=== PATIENT | male | born 1980 | race Caucasian/White ===

== ENCOUNTER 2016-12-08 22:55 | Inpatient (IN) | payer SELFPAY ==
[2016-12-08 22:50] VITALS: O2SAT 100
[2016-12-08 22:55] VITALS: O2SAT 96
[2016-12-08 23:15] VITALS: PULSE 145
[2016-12-08 23:20] VITALS: O2SAT 92
[2016-12-08 23:25] LABS: AUTOMATED NEUTROPHIL # 5.9 TH/MM3 (1.8-7.7); BASOPHIL # 0.1 TH/MM3 (0-0.2); BASOPHIL % 0.4 % (0.0-2.0); EOSINOPHIL # 0.3 TH/MM3 (0-0.4); HEMATOCRIT 44.6 % (39.0-51.0); LYMPH % 44.8 % (9.0-44.0); LYMPHOCYTE # 5.9 TH/MM3 (1.0-4.8); MEAN CELL VOLUME 92.9 FL (80.0-100.0); MEAN CORPUSCULAR HEMOGLOBIN 30.5 PG (27.0-34.0); MEAN CORPUSCULAR HGB CONC 32.8 % (32.0-36.0); MONO % 7.6 % (0.0-8.0); NEUT % 45.2 % (16.0-70.0); PLATELET COUNT 300 TH/MM3 (150-450); RED CELL DISTRIBUTION WIDTH 13.8 % (11.6-17.2); WHITE BLOOD COUNT 13.1 TH/MM3 (4.0-11.0)
[2016-12-08 23:27] LABS: HEMO FLAGS AUTO DIFF
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
[2016-12-08 23:34] LABS: I-STAT POTASSIUM 3.5 MMOL/L (3.5-4.9)
[2016-12-08 23:36] LABS: APTT (PATIENT) 23.3 SEC (24.3-30.1); INTERNATIONAL NORMALIZED RATIO 0.9 RATIO; PROTHROMBIN TIME - PATIENT 10.3 SEC (9.8-11.6)
[2016-12-08] MEDS ORDERED: SODIUM CHLOR 0.9% 1000 ML INJ 1,000 ML IV SCH (23:39)
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
[2016-12-08 23:40] VITALS: O2SAT 96
[2016-12-08] MEDS ORDERED: ONDANSETRON HCL 4 MG/2 ML VIAL IV PRN (23:45)
[2016-12-08] MEDS ORDERED: MISCELLANEOUS NURSING INFORMATION XX SCH (23:45)
[2016-12-08] MEDS ORDERED: MANNITOL INJ 50 ML ONE (23:45)
[2016-12-08] MEDS ORDERED: CHLORHEXIDINE GLUCONATE 2 % 1 PACK (2 CLOTHS) TOP PRN (23:45)
[2016-12-08] MEDS ORDERED: ENALAPRILAT 1.25 MG/ML VIAL IV PRN (23:45)
[2016-12-08] MEDS ORDERED: SODIUM CHLORIDE 0.9% FLUSH 10 ML FLUSH IV FLUSH PRN (23:45)
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
[2016-12-08 23:55] LABS: EOSINOPHILS 2 % (0-4); NEUTROPHIL # MANUAL DIFF 5.8 TH/MM3 (1.8-7.7); PLATELET ESTIMATE SMEAR NORMAL (NORMAL); PLATELET MORPHOLOGY NORMAL (NORMAL); POLYS (SEG NEUTROPHILS) 44 % (16-70); SCAN/DIFF FINAL DIFF MANUAL; WBC DIFF SAMPLE 100
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
[2016-12-09] VITALS: PULSE 128
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
[2016-12-09] MEDS ORDERED: ceFAZolin 2 GM PREMIX 50 ML ONE (00:06)
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
--- NOTE | 2016-12-09 00:10 | PD.PROCEDR ---
Procedure Note Procedure Centerline the right subclavian A time-out was completed verifying correct patient, procedure, site, positioning , and special equipment if applicable. The patient was placed in a dependent position appropriate for central line placement based on the vein to be cannulated. The patients right shoulder was prepped and draped in sterile fashion. 1% Lidocaine was used to anesthetize the surrounding skin area. A triple lumen 9- [place] Cordis catheter was introduced into the the right subclavian vein using the Seldinger technique. The catheter was threaded smoothly over the guide wire and appropriate blood return was obtained. Each lumen of the catheter was evacuated of air and flushed with sterile saline. The catheter was then sutured in place to the skin and a sterile dressing applied. Perfusion to the extremity distal to the point of catheter insertion was checked and found to be adequate. Estimated Blood Loss: 1ml The patient tolerated the procedure well and there were no complications. Issa Weeks MD December 09, 2016 00:10
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
--- NOTE | 2016-12-09 00:12 | PD.PROCEDR ---
Procedure Note Procedure Arterial line on the right A time-out was completed verifying correct patient, procedure, site, positioning , and special equipment if applicable. Allens test was performed to ensure adequate perfusion. The patients right wrist was prepped and draped in sterile fashion. 1% Lidocaine was used to anesthetize the area. A 18G Arrow arterial line was introduced into the radial artery. The catheter was threaded over the guide wire and the needle was removed with appropriate pulsatile blood return. The catheter was then sutured in place to the skin and a sterile dressing applied. Perfusion to the extremity distal to the point of catheter insertion was checked and found to be adequate. Estimated Blood Loss: 1ml The patient tolerated the procedure well and there were no complications. Issa Weeks MD December 09, 2016 00:11
[2016-12-09] MEDS ORDERED: levETIRAcetam 1000 MG INJ 100 ML IV ONE (00:15)
[2016-12-09] MEDS ORDERED: IOHEXOL 350 MG/ML 10 ML VIAL (for RAD DIAG) IV ONE (00:16)
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
[2016-12-09] MEDS ORDERED: fentaNYL 2,500 MCG/NS 250 ML IV SCH (00:30)
[2016-12-09] MEDS ORDERED: 3% SALINE INJ 500 ML IV SCH (00:30)
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
[2016-12-09] MEDS ORDERED: NOREPINEPHRINE 4 MG/4 ML AMP ONE (00:45)
[2016-12-09 00:47] LABS: BLOOD GAS BASE EXCESS -10.6 mmol/L (-2-2); BLOOD GAS CARBOXYHEMOGLOBIN 1.4 % (0-4); BLOOD GAS HCO3 18 mmol/L (22-26); BLOOD GAS METHEMOGLOBIN 0.9 % (0-2); BLOOD GAS O2 HGB SATURATION 97 % (90-100); BLOOD GAS OXYGEN CONTENT 12.3 Vol % (12.0-20.0); BLOOD GAS PCO2 65 mmHg (38-42); BLOOD GAS PO2 334 mmHg (61-120); BLOOD GAS TOTAL HGB 8.4 G/DL (12.0-16.0); TEMP CORR TO 98.6
[2016-12-09 00:48] LABS: CRITICAL VALUE YES; OXYGEN DEVICE VENTILATOR
[2016-12-09 00:49] LABS: DRAW SITE ART LINE; FIO2 100 %; STAT NO; VENT SETTINGS AC/16/500/PEEP 8
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
--- NOTE | 2016-12-09 00:59 | RADRPT ---
EXAM DATE/TIME: 12/09/2016 00:23 [facility] COMPARISON: CHEST SINGLE AP, December 08, 2016, 22:50. INDICATIONS : Right subclavian central line placement. MEDICAL HISTORY : None. SURGICAL HISTORY : None. ENCOUNTER: Subsequent ACUITY: 1 day PAIN SCORE: 0/10 LOCATION: Right chest FINDINGS: A single AP supine view of the chest was obtained. The left lateral costophrenic angle and lower ches t wall were cut off the exam. An endotracheal tube is now present with the tip approximately 1 cm of the liza. A nasogastric tube has been placed and is seen coursing through the esophagus into the st omach. There has been interval placement of a right subclavian central venous line with the tip proje cted over the superior vena cava. There is no visualized pneumothorax. A comminuted right clavicle fr acture is noted. The known subtle rib fractures visualized on CT are not visualized. CONCLUSION: 1. Interval placement of right subclavian central venous line with no visualized pneumothorax on this supine study. 2. Comminuted fracture of the right clavicle. 3. No acute cardiopulmonary disease. Jerome Overton MD on December 09, 2016 at 0:55 Board Certified Radiologist. This report was verified electronically.
[2016-12-09 01:03] VITALS: O2SAT 100
[2016-12-09] MEDS ORDERED: NOREPINEPHRINE 4 MG/D5W 250 ML IV SCH (01:30)
[2016-12-09 01:45] VITALS: O2SAT 100
[2016-12-09] MEDS ORDERED: MULTIVITAMIN INJ 10 ML, THIAMINE INJ 100 MG, FOLIC ACID INJ 1 MG in SODIUM CHLORID 0.9%... IV SCH (01:45)
[2016-12-09] MEDS ORDERED: SODIUM CHLOR 0.9% 1000 ML INJ 1,000 ML IV SCH (01:45)
[2016-12-09 02:00] VITALS: PULSE 120
[2016-12-09] MEDS ORDERED: ceFAZolin 2 GM PREMIX 50 ML IV STA (02:00)
[2016-12-09] MEDS ORDERED: DIPHTH/TETANUS/ACEL PERTUSSIS (BOOSTER) 0.5 ML VIAL/PFS IM ONE (02:10)
[2016-12-09] MEDS ORDERED: VASOPRESSIN INJ 20 UNITS/ML VIAL ONE (02:21)
[2016-12-09] MEDS ORDERED: VASOPRESSIN 40 U/100 ML D5W Titrate, Post Cardiac Surgery IV SCH ×2 (02:30)
[2016-12-09 02:50] VITALS: PULSE 84
[2016-12-09 02:57] VITALS: PULSE 0
--- NOTE | 2016-12-09 03:05 | DEATH SUM ---
Pronouncement Date Pronounced : December 09, 2016 Time Of : 02:57 Pronouncement Called to pronounce of patient. Identified patient as Onofre Romero with wrist band MR# [id number]. Patient with no cardiac activity in 2 separate leads and no palpable/auscible cardiac activity. Patient with no spontaneous respirations, no corneal reflex or response to painful stimuli. Pupils fixed and dilated. Preliminary Cause of : Multi Organ Failure Issa Weeks MD December 09, 2016 03:05
[2016-12-09] MEDS ORDERED: CHLORHEXIDINE GLUCONATE 2 % 1 PACK (2 CLOTHS) TOP SCH (04:00)
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
[2016-12-10] MEDS ORDERED: PANTOPRAZOLE SODIUM 40 MG VIAL IVP SCH
== END 2016-12-09 05:04 | disposition expired | DRG 82 ==
LOC: NEPI 22:55 → NEDA 23:38 → EDBD 23:38 → N03B 23:43
PROVIDERS: ADMIT Surgery; ATTEND Surgery
PROC: 0BH17EZ Insertion of Endotracheal Airway into Trachea, Via Natural or Artificial Opening (ICD-10-PCS; principal; 2016-12-08)
PROC: 5A1935Z Respiratory Ventilation, Less than 24 Consecutive Hours (ICD-10-PCS; 2016-12-08)
PROC: 03HY32Z Insertion of Monitoring Device into Upper Artery, Percutaneous Approach (ICD-10-PCS; 2016-12-09)
PROC: 05H533Z Insertion of Infusion Device into Right Subclavian Vein, Percutaneous Approach (ICD-10-PCS; 2016-12-09)
PROC: 4A133B1 Monitoring of Arterial Pressure, Peripheral, Percutaneous Approach (ICD-10-PCS; 2016-12-09)
PROC: 4A133J1 Monitoring of Arterial Pulse, Peripheral, Percutaneous Approach (ICD-10-PCS; 2016-12-09)
DX: S06.369A Traumatic hemorrhage of cerebrum, unspecified, with loss of consciousness of unspecified duration, initial encounter (principal); G93.6 Cerebral edema; S06.6X9A Traumatic subarachnoid hemorrhage with loss of consciousness of unspecified duration, initial encounter; S22.49XA Multiple fractures of ribs, unspecified side, initial encounter for closed fracture; J96.90 Respiratory failure, unspecified, unspecified whether with hypoxia or hypercapnia; S02.119A Unspecified fracture of occiput, initial encounter for closed fracture; S06.5X9A Traumatic subdural hemorrhage with loss of consciousness of unspecified duration, initial encounter; V28.4XXA Motorcycle driver injured in noncollision transport accident in traffic accident, initial encounter; Y92.488 Other paved roadways as the place of occurrence of the external cause; Y99.9 Unspecified external cause status; Y93.89 Activity, other specified; S42.001A Fracture of unspecified part of right clavicle, initial encounter for closed fracture
CPT/HCPCS: 31500; 36556; 70450; 70486; 71010; 71260; 72125; 72128; 72131; 72170; 74177; 80307; 82435; 82565; 82805; 82947; 84132; 84295; 84520; 85007; 85027; 85610; 85730; 86850; 86900; 86901; 90471; 90715; 94002; 94003; 96374; 99291; G0390; J0690; J2150; Q9967